=== PATIENT | male | born 1965 | race Caucasian/White ===

== ENCOUNTER → 2018-02-03 | Outpatient (CLI) | payer OTHER ==
--- NOTE | 2018-02-03 15:07 | RAD ---
Right knee, 2 views, 02/03/2018: HISTORY: Knee pain No fracture or dislocation is identified. There is minimal posterior patellar spurring. Faint chondrocalcinosis is evident. There is a minimal soft tissue calcification along the medial aspect of the medial femoral condyle, presumably related to old trauma involving the medial collateral ligament. IMPRESSION: 1. Mild degenerative change with minimal chondrocalcinosis. 2. No acute bony abnormality is detected. Electronically signed by: Raoul Diaz MD (02/03/2018 3:04 PM) [facility]
== END | disposition home or self-care (01) ==
LOC: DXRAD 14:34
PROVIDERS: ATTEND Family Medicine
DX: M11.261 Other chondrocalcinosis, right knee (principal)
CPT/HCPCS: 73560